=== PATIENT | female | born 1935 | race Caucasian/White ===

== ENCOUNTER → 2016-11-01 | Outpatient (CLI) | payer MEDICARE, MEDICAID ==
[~2016-11-01] MED LIST: ALBUTEROL-200 PUFFS/ IH; ALPRAZOLAM0.5 M3 PO; ALPRAZOLAM0.5 MG PO; ALPRAZOLAM1 MG PO; AMARYL2 MG PO; AMLO5TAB PO; ATORVASTATIN 4040 MG PO; ATORVASTATIN CA40 MG PO; AVAPRO 150MG T150 MG PO; CALCIUM ACETAT667 MG PO; CEFDINIR 300MG300 MG PO; CLONIDINE HYDR0.1 MG PO; COL-RITE100 MG PO; DIOVAN320 MG PO; DOCUSATE SOD100 MG PO; DOCUSATE SODIU250 M1 PO; DOXAZOSIN MESYLA2 MG PO; DOXYCYLINE50 MG PO; EXFORGE 5 MG-321 TAB PO; FAMOTIDINE 10 MG/ML IV; FOLIC ACID 1MG T1 MG PO; FSBS FS; FUROSEMIDE 40MG40 M1 PO; GLIMEPIRIDE 2MG2 MG PO; HUMALOG100 U/ML SC; HYDRALAZINE50 MG OR; HYDRALAZINE50 MG PO; HYDROCODONE-APA1 TA1 PO; ISOSORBIDE MONO30 MG PO; KEFLEX 500MG.500 MG PO; KEFLEX500 M1 PO; LASIX 40MG. TAB40 MG PO; LIDOCAINE/PRILO1 CRE TP; LIPITOR40 M1 PO; LORTAB 5/3251 TAB PO; LORTAB 5/500 501 TAB PO; METOLAZONE 2.52.5 MG PO; METOLAZONE 5 MG PO; METOLAZONE 5MG T5 MG PO; METOPROLOL SUCC50 M1 PO; METOPROLOL SUCC50 M2 PO; MIRALAX17 GM/DOSE PO; MIRALAX17 GM/PACK PO; NEPHRO-VITE RX1 TAB PO; NEPHRO-VITE VIT1 TAB PO; NEPHRO-VITE1 TAB PO; NITROGLYCERIN0.4 MG SL; NITROSTAT 0.4M0.4 MG SL; NORVASC 10MG. T10 MG PO; PHENERGAN 2525 MG/ML IV; PLAVIX 75MG TAB75 MG PO; PLAVIX75 MG PO; PREDNISONE 10MG10 MG PO; PREDNISONE 20MG20 MG PO; PROMETHAZINE HC25 M2 PO; PROMETHAZINE12.5 M1 PO; RANITIDINE HCL150 MG PO; RENVELA800 MG PO; SENNA DOCUSATE1 TAB PO; SENSIPAR30 MG PO; SULFAMETHOXAZOL1 TA6 PO; TRIAMCINOL30 GM/TUBE TP; VENTOLIN H0.09 MG/Ac IH; VITAMIN D2400 IU PO; ZANTAC 150150 MG PO
--- NOTE | 2016-11-01 16:09 | RADIOLOGY REPORT PS360 ---
CHEST(2 VIEWS-NOT PORTABLE) HISTORY: COPD EXACERBATION; COUGH; SPUTUM ORDERING PHYSICIAN: Elías Graham MD PATIENT AGE: 81 years COMPARISON: 04/10/2015 FINDINGS: There is mild cardiomegaly without failure. Hyperinflation with attenuation of the peripheral vessels consistent with the AP. No lobar consolidation or collapse. No evidence of acute infiltrate. Incidental note made of a 6 mm nodular opacity in the left upper lobe overlying the second interspace. This questioned clinical significance. Radiographic follow-up suggested. Degenerative changes with kyphosis of the thoracic spine. Surgical clips left axilla IMPRESSION: 1. Cardiomegaly with COPD. No acute finding. 2. 6 mm left upper lobe nodular opacity of questioned clinical significance..
== END ==
LOC: RAD 15:49
DX: J44.1 Chronic obstructive pulmonary disease with (acute) exacerbation (principal); R09.3 Abnormal sputum; R05 Cough

== ENCOUNTER → 2016-11-15 | Outpatient (CLI) | payer MEDICARE, MEDICAID ==
--- NOTE | 2016-11-15 16:19 | RADIOLOGY REPORT PS360 ---
CHEST(2 VIEWS-NOT PORTABLE) HISTORY: COPD EXACERBATION ORDERING PHYSICIAN: Elías Graham MD PATIENT AGE: 81 years COMPARISON: 11/01/2016 FINDINGS: The cardiomediastinal silhouette and pulmonary vascularity are within normal limits. Borderline cardiomegaly without failure. No lobar consolidation or collapse. The lungs are clear of acute infiltrate. No acute bony anomalies. IMPRESSION: No change with no acute finding.
== END ==
LOC: RAD 15:58
DX: J44.1 Chronic obstructive pulmonary disease with (acute) exacerbation (principal)

== ENCOUNTER 2017-01-17 14:28 | Emergency (ER) | payer MEDICARE, MEDICAID ==
[~2017-01-17] VITALS: Ht 162.6 cm; Wt 61.2 kg
--- NOTE | 2017-01-17 15:12 | Emergency Room Report ---
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 N Clinical Suspician of Infection? N Mental Status: 1 - Regular (Normal Baseline) Sepsis Risk:Low Sepsis Risk Have you (or family members/close friends) recently traveled outside the [place]? N If Yes, where/when: Have you had exposure to infectious disease within the past month? N TB? Other? Specify: Patient states that she has the past 2 days pain in between her shoulder blades in her shoulders posteriorly and she states it's moderate in severity and achy she states she doesn't know she has any anterior chest pain she states the pain in between her shoulder blades posteriorly is new for her she denies any fevers or chills she has nausea and diarrhea she denies vomiting. Patient states that she feels like she is going to pass out with the pain in between her shoulder blades. Also states she's been having diarrhea for the past 2 days, no blood in the diarrhea. Comment dw Dr. Kimbrough states due to the renal function to admit the [facility], call is out to ALLERGIES Coded Allergies: amoxicillin (11/19/15) celecoxib (From CELEBREX) (11/19/15) clopidogrel (From PLAVIX) (11/19/15) fomepizole (11/19/15) ibuprofen (From MOTRIN) (11/19/15) tuberculin, purified protein deriva (TUBERCULIN,PURIF.PROT.DERIV.) (11/19/15) Uncoded Allergies: AMTIPYINE (11/19/15) Home Medications Reported Medications Glimepiride (Glimepiride 2MG Tablet) 4 MG PO DAILY DOCUSATE SODIUM (Stool Softener) 500 MG PO BID HYDROCODONE/ACETAMINOPHEN (Lortab 5-325 MG Tablet) 2 TAB PO Q6HP PRN PAIN FOLIC ACID (Folic Acid) 1 MG PO DAILY Furosemide (Lasix 40MG) 80 MG PO DAILY CLOPIDOGREL BISULFATE (PLAVIX) 75 MG PO DAILY Hydralazine Hcl (Hydralazine) 50 MG OR Q6HP PRN BLOOD PRESSURE AMLODIPINE BESYLATE (Norvasc) 10 MG PO DAILY Valsartan (Diovan 320MG) 320 MG PO DAILY Atorvastatin Calcium (Lipitor 40MG) 40 MG PO DAILY Ranitidine Hcl (Zantac) 150 MG PO BID ALPRAZOLAM (Alprazolam 1MG) 1 MG PO TID NITROGLYCERIN (Nitrostat) 0.4 MG SL [id number] PRN CHEST PAIN Promethazine Hcl (Promethazine) 12.5 MG PO Q6H PRN N/V Lidocaine/Prilocaine (Lidocaine-Prilocaine Cream) 1 CRE TP PRN BEFORE DIALYSIS Polyethylene Glycol 3350 (Miralax) 17 GM PO BIWEEKLY Metolazone (Zaroxolyn 5 Mg) 5 MG PO DAILY Calcium Acetate 667 MG PO TID VIT B CMPLX 3/FA/VIT C/BIOTIN (Nephro-Freida Rx Tablet) 1 TAB PO DAILY Doxazosin Mesylate 2 MG PO QHS #90 Isosorbide Mononitrate (Isosorbide Mononitrate ER) 30 MG PO DAILY #90 History Medical History General CAD? No Angina: Yes ME: No Hypertension? Yes Hyperlipidemia? Yes CHF? No DVT? No PE? No COPD? Yes Asthma? Yes Anemia? No GERD? Yes Gastric ulcers? No GI Bleed? No Hernia? Yes Thyroid Problems? No Hypothyroidism? No CVA? No Seizures? No Diabetes? Yes Insulin Dependent: No Insulin Pump: No Home FSBS? Yes Renal Insuffiency? Yes End Stage Renal Disease? No UTI? Yes Stones? No BPH? No GB Disease: Yes Nephritic Syndrome? No Asplenia? No Hepatitis? No Sickle Cell Disease? No Arthritis? No Migraines? No Cataracts? Yes Glaucoma? No MRSA? No HIV? No TB? No Anxiety? No Depression? No Cancer? Yes Site: SKIN CA TO NOSE/FACE More? Yes Additional hx: HEMODIALYSIS Immunization Hx DT/Tetanus Flu [id number] Flu Season Pneumonia Received In Past Surgical Hx Previous Surgery?Y OVARIAN CYST REMOVED Tubal Ligation Appendix D & C CARPAL TUNNEL LEFT [place] LEFT KNEE ARTHROSCOPY LEFT ARM DIALYSIS FISTULA SEVERAL SURGS TO VEIN D/T SHUNT IN LT ARM LT CAROTID ENDARTERECTOMY SKIN CA REMOVED NOSE SKIN CA REMOVED BILAT CHEEKS X4 BILAT CATARACT REMOVAL Family History Family Hx Diabetes Yes CAD Yes Hypertension Yes Hyperlipidemia Yes Cancer Yes TB No Social History Smoking Hx Smoker: Former Smoker Tobacco: No Packs/day 1 1/2 - 2 Packs Alcohol Alcohol: No Review of Systems All Other Systems Reviewed and Negative Physical Exam Vital Signs Vital Signs Date Time Temp Pulse Resp B/P Pulse O2 O2 Flow FiO2 Ox Delivery Rate 01/17 1816 58 16 148/48 95 01/17 1741 55 20 137/52 96 01/17 1704 20 01/17 1635 97.9 64 18 118/67 96 01/17 1527 96 01/17 1430 97.0 56 16 109/39 96 General Appearance: Nontoxic Head: Normocephalic, without obvious abnormality, atraumatic. Eyes: conjunctiva/corneas clear ENT: Mucous membranes moist. Neck: No jugular venous distention. Cardiac: regular rate and rhythm Lungs: rhonchi auscultation bilaterally Abdomen: Nontender, Nondistended, positive bowel sounds, no rebound : No CVA tenderness Extremities: no edema Musculoskeletal: No chest wall tenderness Skin: No rashes or lesions to exposed skin. Neurologic: Alert. No gross focal deficits Psychiatric: Normal affect (Pippa TRAN, Magdiel) General Appearance normal appearance Respiratory Status No: respiratory distress. Cardiovascular no JVD Neurologic alert Medical Decision Making LABS/Meds/Orders Pt receiving controlled substance in ED? No Results/Orders Laboratory Tests 01/17/17 1742: Creatine Kinase 43, CK-MB (CK-2) Rel Index 3.7, CK and CKMB Interp 1.6, Troponin I < 0.02 01/17/17 1540: Creatine Kinase 39, CK-MB (CK-2) Rel Index 4.6 H, CK and CKMB Interp 1.8, Troponin I < 0.02 01/17/17 1430: Sodium 137, Potassium 5.0, Chloride 100, Carbon Dioxide 20 L, BUN 165 *H, Creatinine 8.9 H, Estimated Creat Clear 5 L, Estimated GFR (MDRD) 4 *L, Glucose 230 H, Calcium 9.8, Total Bilirubin 0.3, AST 13 L, ALT 19, Alkaline Phosphatase 93, B-Natriuretic Peptide 163 H, Total Protein 6.0 L, Albumin 3.4, Globulin 2.6, Albumin/Globulin Ratio 1.3, Lipase 732 H, D-Dimer 169, WBC 10.1, RBC 3.58 L, Hgb 12.1 L, Hct 37.5, MCV 104.7 H, RDW 15.1, Plt Count 300, MPV 6.3 L, Gran % 65.5, Gran # 6.6, Lymphocytes % 23.6, Monocytes % 7.5, Eosinophils % 2.9, Basophils % 0.5, Lymphocytes # 2.4, Monocytes # 0.8, Eosinophils # 0.3, Basophils # 0.1, PUBS MCHC 32.5, MCH 34.0 H Current Medication Orders Sig/[place] Start time Last Medication Dose Route Stop Time Status Admin Morphine Sulfate 2 MG ONCE ONE 01/17 1700 DC 01/17 IV 01/17 1701 1704 Morphine Sulfate 0 .STK-MED ONE 01/17 1657 DC .ROUTE Ondansetron HCl 0 .STK-MED ONE 01/17 1657 DC .ROUTE Morphine Sulfate 2 MG PRN PRN 01/17 1515 CAN IV 01/17 2112 Ondansetron HCl 4 MG ONCE ONE 01/17 1515 DC 01/17 IV 01/17 1516 1703 Sodium Chloride 10 ML PRN PRN 01/17 1515 AC IV 01/18 1512 Orders Procedure Date/time Status DIET-NOTHING BY MOUTH 01/17 D Active CARDIAC ENZYMES 01/17 1900 Complete CARDIAC ENZYMES 01/17 1600 Complete ELECTROCARDIOGRAM REQUEST 01/17 1516 Active PULSE OXIMETRY REQUEST 01/[address] CHEST SCAN REQ 01/17 1516 Complete CHEST-AP VIEW ONLY 01/17 1516 Active IV SALINE LOCK 01/17 1516 Active OXYGEN PER NURSE 01/17 1516 Active DICE MAKER 01/17 1516 Active LIPASE 01/17 1516 Complete D-DIMER 01/17 1516 Complete COMPLETE METABOLIC PANEL 01/17 1516 Complete CLOSTRIDIUM DIFFICLE TOXIN A,B 01/17 1516 Active CBC WITH AUTO DIFF 01/17 1516 Complete BRAIN NATRIURETIC PEPTIDE 01/17 1516 Complete 12 LEAD EKG-BESSON (INITIAL) 01/[address] CHEST W/O CONTRAST 01/17 UNK Active CM/EKG CM/food aide Rhythm Sinus Bradycardia Rate 55 Ectopy Yes Comments PAC and nonspecific electrocardiogram Departure Departure Time of Disposition 1824 Disposition DC/XFER from ER to [facility] Clinical Impression Primary Impression: Near syncope Secondary Impressions: Chest pain Qualifiers: Chest pain type: unspecified Qualified Code: R07.9 - Chest pain, unspecified Elevated serum creatinine Condition STABLE Referrals Santos TRAN,Elías Turcios (PCP/Family) ED Critical Care Critical Care No at 1830
[2017-01-17 15:22] LABS: LYMPH # 2.4 K/mm3 (0.7-4.5); LYMPH % 23.6 % (10-50.0)
[2017-01-17 15:30] LABS: HEMOGLOBIN 12.1 g/dL (12.2-16.2)
[2017-01-17 19:36] VITALS: BP 122/60
--- NOTE | 2017-01-18 | RADIOLOGY REPORT PS360 ---
CHEST-AP VIEW ONLY HISTORY: chest pain ORDERING PHYSICIAN: Magdiel Das MD PATIENT AGE: 81 years COMPARISON: None available FINDINGS: The cardiomediastinal silhouette and pulmonary vascularity are within normal limits. The lungs are clear without infiltrates, suspicious nodules, or pleural effusions. No acute bony abnormalities. IMPRESSION: Negative chest, no acute finding
--- NOTE | 2017-01-19 14:14 | RADIOLOGY REPORT PS360 ---
CT CHEST W/O CONTRAST HISTORY: CHEST PAIN BETWEEN SHOULDERS AND POSTERIOR CHEST ORDERING PHYSICIAN: Magdiel Das MD PATIENT AGE: 81 years TECHNIQUE: Helical acquisition obtainedwithout contrast. Axial, sagittal, and coronal reformatted images are generated and reviewed. COMPARISON: None FINDINGS: Atherosclerotic calcification involves the aorta and coronary arteries. There is mild cardiomegaly without obvious pericardial effusion. No evidence of aortic aneurysm. No lobar consolidation or collapse is evident. Patchy density is present in the left upper lobe laterally nonspecific and could be due to atelectasis, infiltrate, or fibrosis. There are some minimal nodularity left upper lobe some of which is calcified probably due to granulomas. Nonspecific opacity noted in the left lower lobe posteriorly and could be due to an area of atelectasis or fibrosis. No effusions are evident. No acute bony anomalies. Degenerative changes thoracic spine. IMPRESSION: 1. Coronary artery disease, atherosclerotic calcification biopsy thoracic aorta. 2. Nonspecific patchy density left upper lobe and left lower lobe which could be due to areas of atelectasis or fibrosis. Six-month follow-up recommended to confirm stability and to exclude developing nodules
== END 2017-01-17 19:48 | disposition short-term general hospital (02) ==
LOC: ER 14:28
PROVIDERS: Emergency Medicine
DX: R55 Syncope and collapse (principal); R07.9 Chest pain, unspecified; Z87.891 Personal history of nicotine dependence; J44.9 Chronic obstructive pulmonary disease, unspecified; K21.9 Gastro-esophageal reflux disease without esophagitis; N28.9 Disorder of kidney and ureter, unspecified; I13.2 Hypertensive heart and chronic kidney disease with heart failure and with stage 5 chronic kidney disease, or end stage renal disease
CPT/HCPCS: J2405

== ENCOUNTER 2017-02-06 08:50 | Day surgery (SDC) | payer MEDICARE, MEDICAID ==
[~2017-02-06] VITALS: Ht 162.6 cm; Wt 61.2 kg
--- NOTE | 2017-02-06 13:05 | Anesthesia Record ---
Anesthesia Record Part I Total IV fluids: 300 EBL (ml): 0 Urine Output: 0 (NON MEASURED) Units of blood given: 0 B/P: 145/54 % SaO2: 94 Pulse: 77 Resps: 20 Temp: 97.8 Patient is: Awake, Stable Stable to PACU at: 1220 (SDS) at 1305
--- NOTE | 2017-02-06 13:06 | Anesthesia Record ---
Anesthesia Record Part II Discharge time: 1250 Destination: HOME PACU nurse assessment review? No (WASNT IN PACU) Patient is: Awake, Stable Anesthesia complications? No at 1309
--- NOTE | 2017-02-06 13:13 | Operative Note ---
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 The RIGHT cheek was marked out measured 3.5 cm, the markup was incised and the lesion was excised and submitted. Bleeding was stopped with bipolar cautery. Flaps were elevated tissue rearrangement geometric plastic repair was done with interrupted 5-0 Prolene and 5-0 nylon sutures a Dermabond dressing was applied. The lesion on the LEFT cheek was marked out it to measured 3.5 cm. The markup was incised and the lesion was excised and submitted. Bleeding was stopped with bipolar cautery blood loss was less than 10 mL for all the procedure. 8 tissue rearrangement geometric plastic repair was done with interrupted 5-0 Vicryl and 5-0 nylon sutures, and Dermabond dressing was applied , and the patient was sent to recovery in good general condition. EBL (ml): 3 Specimens obtained: Same as above at 1312
[2017-02-06 14:11] VITALS: BP 150/76
== END 2017-02-06 13:20 | disposition home or self-care (01) ==
LOC: SDC 08:50
PROVIDERS: Otolaryngology
PROC: 0HB1XZX Excision of Face Skin, External Approach, Diagnostic (ICD-10-PCS; 2017-02-06)
PROC: 0HB1XZX Excision of Face Skin, External Approach, Diagnostic (ICD-10-PCS; principal; 2017-02-06 10:30)
DX: C44.329 Squamous cell carcinoma of skin of other parts of face (principal); C44.309 Unspecified malignant neoplasm of skin of other parts of face; E11.9 Type 2 diabetes mellitus without complications